=== PATIENT | female | born 1955 | race Caucasian/White ===

== ENCOUNTER → 2016-05-07 | Outpatient (CLI) | payer BC ==
[~2016-05-07] MED LIST: AMOX/K PO; GLUCPOW41 PO; OXYC-57 PO; VITAMIN D3 PO; WARF2TAB PO
== END | disposition home or self-care (01) ==
LOC: C.RDSM 14:45
PROVIDERS: ATTEND Physical Medicine & Rehabilitation Sports Medicine
DX: M16.12 Unilateral primary osteoarthritis, left hip (principal); M25.859 Other specified joint disorders, unspecified hip

== ENCOUNTER → 2016-08-06 | Outpatient (CLI) | payer BC | END | disposition home or self-care (01) | LOC: C.RDSM 14:45 | PROVIDERS: ATTEND Physical Medicine & Rehabilitation Sports Medicine | DX: Z96.642 Presence of left artificial hip joint (principal); M25.552 Pain in left hip ==

== ENCOUNTER → 2017-01-14 | Outpatient (CLI) | payer BC ==
[~2017-01-14] MED LIST changes: -OXYC-57 PO
--- NOTE | 2017-01-14 09:00 | DIAGNOSTIC IMAGING REPORT ---
AP PELVIS AND LEFT HIP 2 VIEWS CLINICAL HISTORY: Follow-up status post left hip arthroplasty COMPARISON: 08/06/2016 DISCUSSION: There are postsurgical changes of a total left hip arthroplasty. There is no dislocation. No fractures are visualized. There is no conventional radiographic evidence of loosening. IMPRESSION: Postsurgical changes of a total left hip arthroplasty. Electronically signed by: Oscar Warner M.D. 01/14/2017 8:58 AM Dictated Date/Time: 01/14/2017 8:57 AM
== END | disposition home or self-care (01) ==
LOC: C.RDSM 11:57
PROVIDERS: ATTEND Physician Assistant
DX: Z96.642 Presence of left artificial hip joint (principal)

== ENCOUNTER → 2017-08-12 | Outpatient (CLI) | payer BC, OTHER | END | disposition home or self-care (01) | LOC: C.RDSM 12:34 | PROVIDERS: ATTEND Physician Assistant | DX: Z96.642 Presence of left artificial hip joint (principal) ==

== ENCOUNTER → 2017-11-04 | Outpatient (CLI) | payer OTHER ==
[~2017-11-04] MED LIST changes: +CHOL20007 PO; +NAPR1TAB9 PO; +TYLOTC500 PO
--- NOTE | 2017-11-04 16:08 | DIAGNOSTIC IMAGING REPORT ---
LEG LENGTH STUDY (WHOLE LEG) CLINICAL HISTORY: LEG LENGTH DISCREPANCY COMPARISON STUDY: None FINDINGS: There is a total left hip arthroplasty. The right lower extremity as measured from the acetabular roof to the tibial plafond measures 866 mm. The left lower extremity as measured from the acetabular roof the tibial plafond measures 871 mm. IMPRESSION: 1. Total left hip arthroplasty 2. Mild leg length discrepancy. The left lower extremity measures 5 mm longer than the right Electronically signed by: Oscar Warner M.D. 11/04/2017 4:07 PM Dictated Date/Time: 11/04/2017 4:05 PM
== END ==
LOC: C.RADBC 15:23
PROVIDERS: ATTEND Physician Assistant Medical
DX: M21.70 Unequal limb length (acquired), unspecified site (principal); Z96.643 Presence of artificial hip joint, bilateral